=== PATIENT | female | born 1980 | race Caucasian/White ===

== ENCOUNTER 2016-09-30 14:32 | Emergency (ER) | payer OTHER ==
[~2016-09-30] VITALS: Ht 157.5 cm; Wt 54.1 kg
[~2016-09-30 14:32] MED LIST: CLEOCIN150 MG PO; DOXYCYCLINE HY100 MG PO; PROAIR HFA8.5 GM IH; TYLENOL EXTRA500 MG PO; ZOFRAN4 MG PO
[2016-09-30] MEDS ORDERED: PERCOCET 5/31 TABLET PO (15:42)
[2016-09-30 17:03] VITALS: BP 126/84
== END 2016-09-30 17:04 | disposition home or self-care (01) ==
LOC: EME 14:32
DX: S00.83XA Contusion of other part of head, initial encounter (principal); R22.1 Localized swelling, mass and lump, neck; Y04.8XXA Assault by other bodily force, initial encounter
CPT/HCPCS: 70110; 72040; 99281; 99284

== ENCOUNTER 2017-01-27 17:22 | Emergency (ER) | payer OTHER ==
[~2017-01-27] VITALS: Ht 158.8 cm; Wt 54.2 kg
[~2017-01-27 17:22] MED LIST changes: +PERCOCET 5/31 TABLET PO
[2017-01-27] MEDS ORDERED: NORCO 7.5/321 TABLET PO (19:14)
[2017-01-27 19:28] VITALS: BP 117/74
== END 2017-01-27 19:29 | disposition home or self-care (01) ==
LOC: EME 17:22
DX: M75.51 Bursitis of right shoulder (principal); J45.909 Unspecified asthma, uncomplicated
CPT/HCPCS: 99281; 99284